=== PATIENT | male | born 1975 | race Caucasian/White ===

== ENCOUNTER 2016-10-26 06:19 | Day surgery (SDC) | payer BC ==
--- NOTE | 2016-10-04 15:46 | HP ---
DATE OF ADMISSION: 10/26/2016. DATE OF DICTATION: 09/22/2016 BRIEF HISTORY: This is a 41-year-old gentleman who one day developed lower abdominal pain the suprapubic region. The patient at that time had diffuse joint pain as well. The following day he presented to the urgent care center, the nurse practitioner said the joint pain is related to viral disease and his groin pain and suprapubic pain could be related to a hernia, was subsequently referred to either a surgeon or a urologist. The patient presented to a urologist's office, the urologist confirmed a right inguinal hernia and subsequently sent him to [facility] on an urgent basis , to be ruled out for an incarcerated right inguinal hernia containing bowel. Patient on September 02, 2016, underwent evaluation through the emergency room regarding suprapubic and right sided groin discomfort. Patient's CT demonstrated an overdistended gallbladder without stones or wall thickening. No evidence of small bowel obstruction. He had a small fat containing right inguinal hernia. The patient has been referred here for further evaluation and management of this problem. During the emergency room visit, his white count at that time was 4.3. Patient, during his discomfort period, did not have any nausea or vomiting, no history of fever, chills, or sweats, no blood per rectum. PAST MEDICAL HISTORY: He denies coronary disease, hypertension, diabetes. Patient has a history of neurocardiogenic syncope. PAST SURGICAL HISTORY: Patient has had bilateral hip pinning as a child, and he has had elective gynecomastia surgery as well. MEDICATION: None. ALLERGIES: None. SOCIAL HISTORY: Patient does not smoke. He drinks socially. PHYSICAL EXAMINATION: Lungs: Clear. Heart: Regular rhythm. Abdomen: Soft. Nontender. Nondistended. Patient has a fair amount of extra tissue in both groin regions. He has a moderate right inguinal hernia noted on examination. The right scrotum and testicles within normal limits. Right testicle is mildly atrophic. On the left side there is no obvious hernia noted. There is some laxity in the groin. The left testicle was slightly atrophic as well. Scrotum within normal limits. IMPRESSION/PLAN: Right inguinal hernia: This is a 41-year-old gentleman who radiographically is noted to have a fat-containing right inguinal hernia. This confirmed that he has a right inguinal hernia on physical examination. At this point, the patient and myself had a long conversation regarding the pros and cons of hernia repair based on the CT finding of the fat-containing hernia. Patient understands very clearly as well that his suprapubic pain is not typical of hernia pain and given the paucity of findings on CAT scan, his pain may recur even after hernia repair. He understands this and has opted to undergo hernia repair. At the time of hernia surgery, will examine the left side as well, if a left inguinal hernia is identified, it will be repaired at the same setting. The indications, alternatives, and complications of the laparoscopic inguinal hernia repair with mesh as well as open hernia repair with mesh has been discussed. Patient will be scheduled for bilateral laparoscopic inguinal hernia repair with mesh. Ceferino RUST [id number] cc: Júnior Black M.D., [address]
[2016-10-18 18:42] VITALS: BMI 29.5
[2016-10-26] MEDS ORDERED: TAMSULOSIN HCL 0.4 MG CAP.ER.24H (FP) ONE (06:33)
[2016-10-26] MEDS ORDERED: ROCURONIUM BROMIDE 50 MG/5 ML VIAL ONE ×2 (07:00→08:29)
[2016-10-26] MEDS ORDERED: PROPOFOL 20 ML ONE ×2 (07:00→08:02)
[2016-10-26] MEDS ORDERED: SUCCINYLCHOLINE CHLORIDE 200 MG/10 ML VIAL ONE (07:00)
[2016-10-26] MEDS ORDERED: LIDOCAINE HCL/PF 2% SDV 5ML VIAL ONE (07:01)
[2016-10-26] MEDS ORDERED: ePHEDrine SULFATE 50 MG/1 ML AMPULE ONE (07:10)
[2016-10-26] MEDS ORDERED: DESFLURANE GAS 240 ML BOTTLE IH ONE (07:15)
[2016-10-26] MEDS ORDERED: MIDAZOLAM HCL 2 MG/2 ML SINGLE DOSE VIAL ONE (07:36)
[2016-10-26] MEDS ORDERED: ceFAZolin SODIUM 1 GM VIAL ONE (08:23)
[2016-10-26] MEDS ORDERED: ONDANSETRON 4 MG/2 ML VIAL ONE ×2 (08:23→08:50)
[2016-10-26] MEDS ORDERED: DEXAMETHASONE SOD PHOSPHATE 4 MG/1 ML VIAL ONE ×2 (08:23→08:50)
[2016-10-26] MEDS ORDERED: KETOROLAC TROMETHAMINE 30 MG/1 ML VIAL ONE (08:50)
[2016-10-26] MEDS ORDERED: NEOSTIGMINE METHYLSULFATE 0.5 MG/ML - 10 ML MDV ONE (08:51)
[2016-10-26] MEDS ORDERED: GLYCOPYRROLATE 0.2 MG/1 ML VIAL ONE (09:00)
[2016-10-26] MEDS ORDERED: ONDANSETRON 4 MG/2 ML VIAL IVPUSH PRN (09:47)
[2016-10-26] MEDS ORDERED: oxyCODONE HCL 5 MG TABLET PO PRN ×2 (09:47)
--- NOTE | 2016-10-26 09:59 | OP ---
DATE OF OPERATION: 10/26/2016 PREOPERATIVE DIAGNOSIS: Right inguinal hernia, suspect left. POSTOPERATIVE DIAGNOSIS: Bilateral indirect inguinal hernias. PROCEDURES: Bilateral laparoscopic inguinal herniorrhaphy with mesh. SURGEON: Davon Craft MD CAP COVERER: Mina Mckeon MD ANESTHESIA: Artis Zhu MD (general). ESTIMATED BLOOD LOSS: Minimal. SPECIMEN: None. INDICATIONS/PROCEDURE: This is a 41-year-old gentleman with known right inguinal hernia. He has become significantly symptomatic from the hernia, and on physical examination, it was thought he possibly could have a left. He is here for operative repair. Patient was identified and appropriately positioned on the operating room table. After placement of general anesthesia, the abdomen was prepped and draped in the usual sterile fashion with ChloraPrep. An infraumbilical incision was made deep into the subcutaneous tissues. The fascia of the rectus muscle on the right identified, divided sharply, the muscles split. Under direct vision, a dissector balloon followed by structural balloon placed. Also, under direct vision a suprapubic 11-mm port placed. The following structures on the right side identified, pubic tubercle, Coopers ligament, and inferior epigastric vessels, spermatic cord, and lateral abdominal wall. During the dissection, the patient was noted to have an indirect inguinal hernia. The direct floor was not violated nor attenuated. The indirect sac was reduced back into the preperitoneal space. A 4.5 x 6 piece of Versatex mesh was keyhole placed through the suprapubic port site. The mesh was wrapped around the cord structures laterally to reconstruct the internal ring. Laterally, the mesh anchored to the anterior abdominal wall and lateral abdominal wall. Medially, the mesh anchored to the anterior abdominal wall, pubic tubercle, and Coopers ligament. Upon completion of the right side, similar structures on the left side identified. On the left side, he had no direct component, as well. The direct inguinal space was mildly attenuated. An indirect sac was identified, reduced back into the preperitoneal space. Another 4.5 x 6 piece of Versatex mesh was keyhole placed through the suprapubic port site. The mesh wrapped around the cord structures laterally to reconstruct the internal ring. Medially, the mesh well overlapped in the midline. Laterally, the mesh anchored to the anterior abdominal wall and lateral abdominal wall. Medially, the mesh anchored to the anterior abdominal wall, pubic tubercle, and Coopers ligament. The preperitoneal space desufflated under direct vision. The operative field examined, noted to be hemostatic. Port sites hemostatic. The fascia at the suprapubic port site and infraumbilical port site were reapproximated with interrupted 0 Vicryl suture. All skin closed with 4-0 subcuticular Biosyn followed by Dermabond. At the conclusion of the case, sponge counts were correct. ATTESTATION: Brief operative note handwritten on the preprinted form. [facility] queried prior to giving any narcotic and will be E-script. Ceferino RUST [id number] cc: Dr. Júnior Black
[2016-10-26] MEDS ORDERED: LACTATED RINGERS SOLUTION 1,000 ML IV SCH (10:00)
[2016-10-26 11:10] VITALS: TEMP 97.8
[2016-10-26 11:14] VITALS: PULSE 72
[2016-10-26 13:15] VITALS: BP 113/73
== END 2016-10-26 13:20 | disposition home or self-care (01) ==
LOC: FASU 06:19
PROVIDERS: ATTEND Surgery
PROC: 0YUA4JZ Supplement Bilateral Inguinal Region with Synthetic Substitute, Percutaneous Endoscopic Approach (ICD-10-PCS; principal; 2016-10-26 08:27)
DX: K40.20 Bilateral inguinal hernia, without obstruction or gangrene, not specified as recurrent (principal)
CPT/HCPCS: 94760

== ENCOUNTER 2024-02-12 02:19 | Inpatient (IN) | payer BC ==
[2024-02-12 03:42] LABS: BASO % 0.3 % (0-2.0); EOS % 0.2 % (0-4.5); HEMATOCRIT 42.2 % (35.4-49); HEMOGLOBIN 14.8 GM/dL (11.7-16.9); LYMPH % 10.5 % (8-40); MCH 31.9 pg (25.7-33.7); MCHC 35.2 g/dl (32.0-35.9); MEAN CELL VOLUME 90.6 fl (80-96); MEAN PLT VOLUME 7.4 fl (7.5-11.1); MONO % 7.1 % (3.8-10.2); NEUT % 81.9 % (42.8-82.8); PLATELET COUNT 273 10^3/uL (134-434); RBC 4.66 M/mm3 (4.00-5.60); RDW 13.7 % (11.9-15.9); WHITE BLOOD COUNT 6.8 K/mm3 (4.0-10.0)
[2024-02-12 03:44] LABS: INR 1.2 (0.83-1.09); PROTHROMBIN TIME (PATIENT) 13.9 SEC (9.7-13.0)
[2024-02-12] MEDS ORDERED: FAMOTIDINE 20 MG/50 ML IVPB 20 MG/50 ML MG IVPB ONE (03:50)
[2024-02-12] MEDS ORDERED: ACETAMINOPHEN INJECTION 100 ML IVPB ONE (03:51)
[2024-02-12 04:00] LABS: POTASSIUM 3.6 mmol/L (3.5-5.1)
[2024-02-12 04:02] LABS: ALBUMIN 3.7 g/dl (3.4-5.0); BLOOD UREA NITROGEN 17.1 mg/dL (7-18); CALCIUM 8.8 mg/dL (8.5-10.1)
[2024-02-12] MEDS: ACETAMINOPHEN 1000 MG/100 ML BAG IVPB ONE (04:02)
[2024-02-12] MEDS: FAMOTIDINE 20 MG/50 ML IVPB 20 MG/50 ML MG IVPB ONE (04:02)
[2024-02-12] MEDS: ONDANSETRON 4 MG/2 ML VIAL IVPUSH ONE (04:05)
[2024-02-12] MEDS: MAG HYDROX/AL HYDROX/SIMETH 30 ML UNIT-DOSE CUP PO ONE (04:05)
[2024-02-12] MEDS: SODIUM CHLORIDE 1,000 ML IV STA (05:35)
[2024-02-12] MEDS ORDERED: DEXTROSE 5%-0.45% SALINE 1,000 ML IV SCH (06:00)
[2024-02-12 09:34] LABS: CHOLESTEROL 145 mg/dL (50-200); HDL CHOLESTEROL 36 mg/dL (40-60); LDL CHOLESTEROL (ONLY DFH) 96 mg/dL (5-100)
[2024-02-12 11:18] VITALS: RESP 16; BMI 29.6
[2024-02-12 14:49] VITALS: BP 115/70; PULSE 70; TEMP 98
== END 2024-02-12 18:30 | disposition left against medical advice (07) | DRG 392 ==
LOC: FER 02:19 → FM/S 06:10
PROVIDERS: ADMIT Internal Medicine
DX: K52.9 Noninfective gastroenteritis and colitis, unspecified (principal); K21.9 Gastro-esophageal reflux disease without esophagitis; R07.89 Other chest pain; R10.9 Unspecified abdominal pain
CPT/HCPCS: 36415; 71046-TC-FY; 74019-TC-FY; 74177-TC; 80053; 80061; 83690; 84484; 85025; 85610; 93005; 93306-TC; 99285-25; G0378; J0131; Q9967